=== PATIENT | male | born 1985 | race Caucasian/White ===

== ENCOUNTER 2025-01-26 12:56 | Emergency (ER) | payer MEDICARE, SELFPAY ==
[2025-01-26] VITALS (17 sets, daily range): BP systolic 107–123; BP diastolic 71–84; PULSE 59–67; RESP 10–17; TEMP 36.8; O2SAT 96–100
--- NOTE | ~2025-01-26 | XR_ITS ---
EXAMINATION: XR chest 2V DATE: 01/26/2025 13:33 INDICATION: Left-sided chest pain TECHNIQUE: PA and lateral views of the chest were obtained. COMPARISON: None FINDINGS: The lungs are clear with no focal airspace opacities, pulmonary edema, pleural effusion or pneumothor ax. The cardiomediastinal silhouette is normal. Mild thoracolumbar spondylosis. IMPRESSION: 1. No acute cardiopulmonary disease. Reviewed, dictated and finalized at location A.
--- NOTE | ~2025-01-26 | CT_ITS ---
CTA chest abdomen pelvis Ordering provider: Virginia Wade PA-C History: 39 years Male with . chest pain with left arm tingling . Comparison: None. Technique: CT chest with IV contrast. CT abdomen and pelvis CT abdomen and pelvis with IV and with or al contrast. Radiation reduction technique utilized.The dose-length product was 520.77 mGy-cm. 100 mL Omnipaque 350 was given IV. FINDINGS: CHEST: --VISUALIZED THORACIC INLET: Normal. --MEDIASTINUM: Aorta/coronary arteries: The thoracic aorta is normal. Heart/other: The heart is not enlarged. Lymph nodes: No mediastinal or hilar adenopathy. --LUNGS: No pulmonary nodules or masses. No infiltrates or effusions. No pneumothorax. --MUSCULOSKELETAL: Soft tissues: The superficial soft tissues are normal. Bones: Normal spine. ABDOMEN/PELVIS: --MUSCULOSKELETAL: Bones: Age appropriate degenerative changes of the spine. Superficial soft tissues: The superficial soft tissues are normal. --UPPER ABDOMINAL ORGANS: Liver: Normal. Gallbladder: Normal. Spleen: Normal. Stomach/duodenum: Normal. Pancreas: Normal. Adrenals: Normal. Kidneys: Right renal artery aneurysm is seen measuring 1.4 x 1.1 cm. --PELVIC ORGANS: The bladder shows slightly thickened wall. Evaluation for cystitis advised. No bladd er stones. --BOWEL AND MESENTERY: Colon: No evidence of diverticulitis.. Slightly thickened wall of the rectum. Clinical evaluation adv ised. Fecal material is loaded in the colon. Normal appendix. Small Bowel: Normal. No obstruction. Peritoneum/mesentery: No free air or free fluid. No mesenteric lymphadenopathy. Small mesenteric lymp h nodes are seen in the right lower quadrant. --RETROPERITONEUM: Normal aorta. No retroperitoneal lymphadenopathy. Small para-aortic lymph nodes are noted. IMPRESSION: CHEST: 1. No acute cardiopulmonary pathology. 2. No evidence of aortic dissection or pulmonary embolism. ABDOMEN/PELVIS: 1. No evidence of appendicitis, diverticulitis or intestinal obstruction. 2. 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 3. Constipation. 4. Thickened wall of the rectum which may indicate proctitis. Virginia Wade was notified with the result of the patient at 4:02 PM on January 26, 2025. Reviewed, dictated and finalized at location A.
--- NOTE | 2025-01-26 12:58 | ECG_ITS ---
Test Date: 2025-01-26 13:21:31 Measurements Intervals [place] Rate: 61 P: 51 SC: 163 QRS: 83 QRSD: 120 T: 59 QT: 377 QTc: 380 Interpretive Statements SINUS RHYTHM POSSIBLE LEFT ATRIAL ENLARGEMENT [-0.1mV P-WAVE IN V1/V2] POSSIBLE RIGHT VENTRICULAR CONDUCTION DELAY [RSR (QR) IN V1/V2] EARLY REPOLARIZATION [ST ELEVATION WITH NORMALLY INFLECTED T-WAVE] TYPE 3 BRUGADA PATTERN (NON-DIAGNOSTIC) [COVED/SADDLEBACK ST ELEVATION > 0.1mV IN 2 OF V1-3] No previous ECG available for comparison Electronically Signed On 01-26-2025 15:34:03 CDT by Monet Mcdowell M.D.
[2025-01-26] MEDS: ASPIRIN 81 MG CHEWABLE TABLET 324 MG PO (13:17)
[2025-01-26 13:21] LABS: Basophils Percent Auto 0.6 % (0.2-1.2); Eosinophils Absolute Auto 0.1 K/mm3 (0-0.3); Eosinophils Percent Auto 2.5 % (0-4.4); Hematocrit 44.4 % (42.0-52.0); Hemoglobin 15.9 g/dL (14.0-18.0); Immature Granulocyte Absolute 0.01 K/mm3 (0.00-0.031); Immature Granulocyte Percent A 0.2 % (0-0.5); Lymphocytes Absolute Auto 1.76 K/mm3 (0.9-3.2); Lymphocytes Percent Auto 36.7 % (18.3-44.2); Mean Corpuscular HGB Conc 35.8 g/dl (32-36); Mean Corpuscular Hemoglobin 31.7 pg (26-34); Mean Corpuscular Volume 88.6 fl (80-100); Mean Platelet Volume 9.2 fl (7.4-10.4); Monocytes Absolute Auto 0.6 K/mm3 (0.1-0.6); Monocytes Percent Auto 11.7 % (2.6-8.5); Neutrophils Absolute Auto 2.3 K/mm3 (1.3-6.7); Neutrophils Percent Auto 48.3 % (45.5-73.1); Platelet Count Result 158 k/mm3 (150-375); Red Blood Count 5.01 M/mm3 (4.6-6.20); Red Cell Distribution Width 12.2 % (11.5-14.5); White Blood Count 4.8 K/mm3 (4.5-10.0)
[2025-01-26 13:31] LABS: Alanine Aminotransferase 27 U/L (6-50); Albumin Level 4.6 g/dL (3.5-5.1); Alkaline Phosphatase 51 U/L (38-126); Anion Gap 8 mmol/L (4-12); Aspartate Amino Transferase 34 U/L (17-59); Bilirubin,Total 0.9 mg/dL (0.2-1.3); Blood Urea Nitrogen 11 mg/dL (9-20); Carbon Dioxide 27 mmol/L (22-30); Chloride 105 mmol/L (98-107); Estimated CRCL calculation 108 ml/min; Estimated Glomerular Filt Rate > 60; Glucose 92 mg/dL (65-110); Lipase 107 U/L (23-300); Potassium 4.1 mmol/L (3.4-5.0); Sodium 140 mmol/L (137-145)
[2025-01-26 13:33] LABS: INR 0.9
[2025-01-26 13:34] LABS: Partial Thromboplastin Time 28.5 Seconds (22.3-36.8)
[2025-01-26 13:42] LABS: Troponin I < 0.012 ng/mL (0.000-0.034)
--- OUTSIDE RECORDS SUMMARY | 2025-01-26 14:16 | XMS_ITS | Encounter Summary ---
Author Organization [facility] Address [address] [place] [address] Care Team Providers Care Domestic Violence Advocate Name Role Phone Cecily Licea Primary Care Provid er Encounter Details Date Type Department Care Team ([facility] st Contact Info) Description 09/15/2023 Billing Encounter LABORATORY [address] [place], [place] [id number] Cecily Licea PA [address], [address] [place] [address] Social History Tobacco Use Types Packs/Day Years Used Date Smoking Tobacco: Never Smokeless Tobacco: Never Alcohol Use Standard Drinks/Week Comments Not Currently 0 (1 standard drink = 0.6 oz pur e alcohol) Sex and Gender Information Value Date Recorded Sex Assigned at Male 09/14/2023 9:54 AM EST Legal Sex Male 9:53 AM EST Gender Identity Not on file Sexual Orientation Not on file documented as of this encounter Functional Status * Are you blind or do you have serious difficulty seeing, even when wearing glasses? Answer Date of Assessment Author Status No 09/15/2023 9:55 AM EST Daisha Cardona A ctive * Do you have serious difficulty walking or climbing stairs? (5 years or older) Answer Date of Assessment Author Status No 09/15/2023 9:55 AM EST Daisha Cardona A ctive * Are you deaf or do you have serious difficulty hearing? Answer Date of Assessment Author Status No 09/15/2023 9:55 AM EST Daisha Cardona A ctive * Is your DATABASE ARCHITECT blind or have serious difficulty seeing, even when wearing glasses? Answer Date of Assessment Author Status Yes 09/15/2023 9:55 AM Daisha Nieto A ctive * Are you deaf or do you have serious difficulty hearing? Answer Date of Assessment Author Status No 09/15/2023 9:55 AM Daisha Nieto A ctive * Are you blind or do you have serious difficulty seeing, even when wearing glasses? Answer Date of Assessment Author Status No 09/15/2023 9:55 AM Daisha Nieto A ctive * Do you have serious difficulty walking or climbing stairs? (5 years or older) Answer Date of Assessment Author Status No 09/15/2023 9:55 AM Daisha Nieto A ctive documented as of this encounter Plan of Treatment Not on file documented as of this encounter Visit Diagnoses Not on filedocumented in this encounter Care Teams Domestic Violence Advocate Relationship Specialty Start Date End Date Cecily Licea PA [address] [place] [address], [address] [place] [address] PCP - General Physician Tube Station Attendant 09/15/23 documented as of this encounter
--- OUTSIDE RECORDS SUMMARY | 2025-01-26 14:16 | XMS_ITS | Encounter Summary ---
Author Organization [facility] Address [address] [place] [address] Care Team Providers Care Battery Container Tester Aluminum Name Role Phone Cecily Licea Primary Care Provid er Encounter Details Date Type Department Care Team (Late st Contact Info) Description 09/15/2023 Procedure Pass [facility] [address], [address] [place] [address] Social History Tobacco Use Types [...] No 09/15/2023 9:55 AM EST Daisha Cardona N A ctive * Do you have serious difficulty walking or climbing stairs? (5 years or older) Answer Date of Assessment Author Status No 09/15/2023 9:55 AM EST Jaden Cardonae N A ctive * Are you deaf or do you have serious difficulty hearing? Answer Date of Assessment Author Status No 09/15/2023 9:55 AM EST Jaden Cardonae N A ctive * Is your CAMPGROUND CARETAKER blind or have serious difficulty seeing, even when wearing glasses? Answer Date of Assessment Author Status Yes 09/15/2023 9:55 AM EST Daisha Cardona N A ctive * Are you deaf or [...] Status No 09/15/2023 9:55 AM Daisha Nieto ctive documented as of this encounter Plan of Treatment Not on file documented as of this encounter Visit Diagnoses Not on filedocumented in this encounter Care Teams Battery Container Tester Aluminum Relationship Specialty Start Date End Date Cecily Licea PA [address] [place] [address], [place] [address] PCP - General Physician Nike Athlete 09/15/23 documented as of this encounter
--- OUTSIDE RECORDS SUMMARY | 2025-01-26 14:16 | XMS_ITS | Clinical Summary ---
Author Organization [facility] Address [address] [facility] [place] [address] Care Team Providers Care Automotive Technician Instructor Name Role Phone Pcp, No Primary Care Provider Unavailabl e Allergies No known active allergies Medications lithium carbonate (LITHOBID) 300 mg Oral Tablet Sustained Release 04/22/2021 Active mirtazapine (REMERON) 15 mg Oral Tablet Take 1 Tablet (15 mg total) by mouth Every night 10/21/2024 Active Active Problems No known active problems Encounters Date Type Department Care Team Description 12/05/2024 12:30 PM EDT Office Visit Urgent Care, [address] [place] [address] Bakari Nguyen PA-C Diarrhea, unspecified type (Primary Dx) 12/05/2024 Travel from Last 3 Months Immunizations Immunization Administration Dates Next Due Covid-19 Vaccine,Pfizer-BioNTech,Purple Top,12yr s+ 01/19/2021 Social History Tobacco Use Types Packs/Day Years Used Date Smoking Tobacco: Former Smokeless Tobacco: Never Tobacco Cessation:Counseling Given: Not Answered Alcohol Use Standard Drinks/Week Comments Not Currently 0 (1 standard drink = 0.6 oz pur e alcohol) Sex and Gender Information Value Date Recorded Sex Assigned at Not on file Legal Sex Male 10:39 AM EDT Gender Identity Not on file Sexual Orientation Not on file Last Filed Vital Signs Vital Sign Reading Time Taken Comments Blood Pressure 120/76 12/05/2024 2:09 PM EDT Pulse 67 12/05/2024 2:09 PM EDT Temperature 36.7 C (98 F) 12/05/2024 2:09 PM EDT Respiratory Rate 17 06/02/2021 3:57 PM EDT Oxygen Saturation 99% 12/05/2024 2:09 PM EDT Inhaled Oxygen Concentration - - Weight 71.5 kg (157 lb 9.6 oz) 12/05/2024 2:09 P M EDT Height 180.3 cm (5' 11 ) 06/02/2021 3:57 PM EDT Body Mass Index 21.98 06/02/2021 3:57 PM EDT Plan of Treatment Health Maintenance Due Date Last Done Comments Hepatitis C screening 1983 HIV Screening 12/03/1998 Adult Tdap-Td (1 - Tdap) 12/03/2002 Hepatitis B Vaccine (1 of 3 - 19+ 3-dose series) 12/03 Depression Screening 06/02/2022 06/02/2021 Covid-19 Vaccine ( season) 05/20/202411/2020 Medicare Annual Wellness Vis it - Calendar Year Insurers 09/19/2024 [facility] [employer] SYSTEM[employer] ENGINEER Capture Hidden 04/19/2025 Influenza Vaccine (Season Ended) 2025 Insurance [facility] MEDICARE Care Teams Automotive Technician Instructor Relationship Specialty Start Date End Date Pcp, No PCP - General 12/05/24
--- OUTSIDE RECORDS SUMMARY | 2025-01-26 14:16 | XMS_ITS | Clinical Summary ---
Author Organization [facility] Address [address] [place] [id number] Care Team Providers Care Toll Booth Operator Name Role Phone Cecily Licea Primary Care Provid er Allergies No known active allergies Medications lithium (LITHOBID) 300 MG CR tablet Take 2 tablets (600 mg) by mouth nightly 08/25/2023 Active QUEtiapine (SEROquel) 25 MG tablet Take 1 tablet (25 mg) by mouth nightly Active Active Problems Problem Noted Date Diagnosed Date Testicular pain, left 09/15/2023 Testicular mass 09/15/2023 Social History Tobacco Use Types Packs/Day Years [...] Sign Reading Time Taken Comments Blood Pressure 121/69 09/15/2023 9:57 AM EST Pulse 70 09/15/2023 9:57 AM EST Temperature 35.9 C (96.7 F) 09/15/2023 9:57 AM EST Respiratory Rate 16 09/15/2023 9:57 AM EST Oxygen Saturation 99% 09/15/2023 9:57 AM EST Inhaled Oxygen Concentration - - Weight 66.5 kg (146 lb 9.6 oz) 09/15/2023 9:57 A M EST Height 180.3 cm (5' 11 ) 09/15/2023 9:57 AM EST Body Mass Index 20.45 09/15/2023 9:57 AM EST Plan of Treatment Health Maintenance Due Date Last Done Comments Medicare Annual Wellness Visit 1985 Tetanus Ten-Year 1983 HEPATITIS C SCREENING 12/03/2001 COVID-19 Vaccine ( season) 05/20/202411/2020 Annual Exam 09/15/2024 09/15/2023 Depression Screening 09/19/2024 INFLUENZA VACCINE 04/19/2025 Insurance [facility] MED ADV DSNP [id number] [facility] MED [facility]V DSNP [id number] [facility] ADV DSNP [id number] [facility] MED ADV DSNP [id number] [facility] MED ADV DSNP [id number] [facility] MED ADV DSNP [id number] [facility] MED ADV DSNP [id number] [facility] MED ADV DSNP [id number] Care Teams Toll Booth Operator Relationship Specialty Start Date End Date Clingerman, Cecily Kerri, PA [address], [address] [place] [address] PCP - General Physician Medical Technologist Chief 09/15/23
--- NOTE | 2025-01-26 15:14 | ED.CHESTPAIN ---
HPI - Chest Pain General Chief Complaint: Chest Pain Stated Complaint: Chest pain/left arm numbness, shortness of breath Time Seen by Provider: 01/26/25 14:00 History of Present Illness HPI narrative: 39-year-old male with no past medical history presents emergency department for acute onset chest pain that started at 1200 today while sitting on the couch. Patient states he was drinking his coffee when he had sudden onset left-sided chest pain that radiated to his back lasted for approximately 15 minutes. Patient states he constantly for a stretch which did help somewhat, however he stood up again the pain returned. He reports associated shortness of breath, lightheadedness and left arm tingling. States the arm tingling resolved on the patient came to the ED. He states the intensity of the pain improved after 15 minutes since the onset but has been a tight and achy pain to the left side of his chest since. He states the pain is now worse with deep inspiration and with movement, better at rest. He denies recent injury or trauma, cough, hemoptysis, fever, abdominal pain, lower extremity edema history of VTE. Patient was adopted in who is unfamiliar his family medical history but was mother of cancer. He has not smoked in 8 years. Related Data Allergies Allergy/AdvReac Type Severity Reaction Status Date / Time No Known Allergies Allergy Verified 01/26/25 12:57 Review of Systems Review of Systems: All systems reviewed & are unremarkable except as noted in HPI and below Exam Narrative: GENERAL: Well-appearing, well-nourished, and in no acute distress. HEAD: Normocephalic, atraumatic. EYES: PERRLA and EOMI. ENT: Nares clear, no rhinorrhea or epistaxis. Mucous membranes moist. NECK: Supple. CHEST: Clear to auscultation. No respiratory distress. Tenderness to the left costosternal border on palpation HEART: Regular rate and rhythm. No murmur heard. Normal peripheral pulses. ABDOMEN: Soft, nontender, nondistended, normal active bowel sounds. EXTREMITIES: Normal range of motion. No edema. SKIN: Warm, dry, no rash. NEURO: No focal deficits. Alert and oriented x4. BUE and BLE strength 5/5, sensation intact throughout Course Vital Signs Vital signs: Vital Signs Temperature 98.3 F 01/26/25 13:06 Pulse Rate 67 01/26/25 13:06 Respiratory Rate 12 05/10/25 13:06 Blood Pressure 123/82 01/26/25 13:06 Pulse Oximetry 100 01/26/25 13:06 Oxygen Delivery Room Air 01/26/25 13:06 Temperature 98.3 F 01/26/25 13:06 Pulse Rate 66 01/26/25 16:01 Respiratory Rate 14 01/26/25 16:01 Blood Pressure 114/77 01/26/25 16:01 Pulse Oximetry 100 01/26/25 16:01 Oxygen Delivery Room Air 01/26/25 13:16 MDM - Chest Pain MDM Narrative Medical decision making narrative: 39-year-old male presents emergency department for sudden-onset left-sided chest pain that started at 12:00 p.m. today while he was sitting on the couch drinking coffee. Patient reports associated left arm tingling, shortness of breath, lightheadedness. States pain improved after about 15 minutes but has had intermittent tightness in the left side of his chest that is worse with deep inspiration and with movement since. Upon arrival to the ED is vital signs are stable. He is afebrile and nontoxic appearing resting comfortably in exam bed. He is neurovascularly intact, no deficits. He does have tenderness to the left costosternal border on palpation. EKG shows normal sinus rhythm with a rate of 61 ppm, normal DC interval, normal QRS duration, normal QTC, early repolarization otherwise no acute ischemic changes. No prior EKGs for comparison. Troponin is undetectable x2. CBC shows no leukocytosis or anemia. Chemistries are unremarkable no electrolyte derangements. Lipase is within normal limits. Given reported tingling to the left arm associated chest pain, CTA chest abdomen pelvis obtained for evaluation of aortic dissection. There is no acute cardiopulmonary pathology, no evidence of aortic dissection or pulmonary embolism. 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 Patient updated on results. Patient received Toradol, on re-evaluation states he feels much better. Suspect a component of MSK etiology. Will provide ibuprofen and Flexeril for costochondritis. He was advised to follow-up closely with his PCP for further evaluation and referral to vascular surgery regarding the incidental finding of renal artery aneurysm. Will also provide information regarding follow-up with [facility] vascular surgery. Stool softeners and MiraLax provided for constipation and encouraged a high-fiber diet. He has no signs or symptoms of proctitis while this does not clinically correlate. Patient is ready to be discharged and requesting food. He was given strict ED return precautions and discharged in stable condition. Lab Data 01/26/25 13:13 01/26/25 13:13 Labs: Lab Results 01/26/25 01/26/25 Range/Units 13:13 15:53 WBC 4.8 (4.5-10.0) K/mm3 RBC 5.01 (4.6-6.20) M/mm3 Hgb 15.9 (14.0-18.0) g/dL Hct 44.4 (42.0-52.0) % MCV 88.6 (80-100) fl MCH 31.7 (26-34) pg MCHC 35.8 (32-36) g/dl RDW 12.2 (11.5-14.5) % Plt Count 158 (150-375) k/mm3 MPV 9.2 (7.4-10.4) fl Immature Gran % (Auto) 0.2 (0-0.5) % Neut % (Auto) 48.3 (45.5-73.1) % Lymph % (Auto) 36.7 (18.3-44.2) % Callahan % (Auto) 11.7 H (2.6-8.5) % Eos % (Auto) 2.5 (0-4.4) % Baso % (Auto) 0.6 (0.2-1.2) % Lymph # (Auto) 1.76 (0.9-3.2) K/mm3 Callahan # (Auto) 0.6 (0.1-0.6) K/mm3 Eos # (Auto) 0.1 (0-0.3) K/mm3 Baso # (Auto) 0.0 (0.0-0.1) K/mm3 Abs Immat Gran (auto) 0.01 (0.00-0.031) K/mm3 Absolute Neuts (auto) 2.3 (1.3-6.7) K/mm3 Absolute Nucleated RBC 0.000 (0.0-0.012) K/mm3 Nucleated RBC % 0.0 (0.0-0.2) % PT 13.0 (11.1-14.7) Seconds INR 0.9 APTT 28.5 (22.3-36.8) Seconds Sodium 140 (137-145) mmol/L Potassium 4.1 (3.4-5.0) mmol/L Chloride 105 (98-107) mmol/L Carbon Dioxide 27 (22-30) mmol/L Anion Gap 8 (4-12) mmol/L BUN 11 (9-20) mg/dL Creatinine 0.81 (0.7-1.3) mg/dL Estim Creat Clear Calc 108 ml/min Estimated GFR > 60 (59 - ) Glucose 92 (65-110) mg/dL Calcium 9.0 (8.4-10.2) mg/dL Total Bilirubin 0.9 (0.2-1.3) mg/dL AST 34 (17-59) U/L ALT 27 (6-50) U/L Alkaline Phosphatase 51 (38-126) U/L Troponin I < 0.012 < 0.012 (0.000-0.034) ng/mL NT-Pro-B Natriuret Pep 37 (19.9-100) pg/mL Total Protein 7.0 (6.3-8.2) g/dL Albumin 4.6 (3.5-5.1) g/dL Lipase 107 (23-300) U/L Discharge Plan Discharge Clinical Impression: Costochondritis, Atypical chest pain, Aneurysm of renal artery Constipation Qualifiers: Constipation type: unspecified constipation type Qualified Code(s): K59.00 - Constipation, unspecified Patient Disposition: Home Condition: Stable Instructions: Antibiotic Form, Chest Pain (ED), Constipation (DC), Costochondritis (ED) Additional Instructions: You were evaluated in the emergency department for chest pain. Your workup here shows no heart attack, no dissection or blood clot in her lungs, no pneumonia. 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 Please follow-up with your primary care provider she may need referral to a vascular surgeon. You could also follow up with [facility] vascular surgery at [phone]. Your also found to have findings concerning for constipation. Please drink plenty fluids and eat a high-fiber diet, take docusate and MiraLax as directed. I suspect your chest pain is due to a muscular origin. Please take the muscle relaxer and ibuprofen as needed. Follow-up closely with your PCP. Return to the emergency department if you develop any new or worsening symptoms. Patient Language: Estonian Prescriptions: New cyclobenzaprine 10 mg tablet 10 mg PO TID PRN (Reason: muscle spasm) Qty: 14 0RF ibuprofen 800 mg tablet 800 mg PO TID PRN (Reason: pain) Qty: 14 0RF docusate sodium 100 mg capsule 100 mg PO BID Qty: 20 0RF polyethylene glycol 3350 17 gram/dose powder 17 g PO DAILY Qty: 119 0RF Follow-up/Referrals: PHYSICIAN,LIFE INSURANCE AGENT [Primary Care Provider] - Quality HEART score for chest pain patients History: slightly suspicious ECG: normal Age: < or = to 45 years Risk factors: no risk factors known Troponin: < or = to 1x normal limit Heart score: 0
[2025-01-26 15:32] LABS: NT Pro B Type Natriuretic Pept 37 pg/mL (19.9-100)
--- NOTE | 2025-01-26 15:49 | ECG_ITS ---
Test Date: 2025-01-26 15:54:56 Measurements Intervals [place] Rate: 60 P: 40 DC: 160 QRS: 80 QRSD: 114 T: 49 QT: 378 QTc: 378 Interpretive Statements SINUS RHYTHM POSSIBLE LEFT ATRIAL ENLARGEMENT [-0.1mV P-WAVE IN V1/V2] POSSIBLE RIGHT VENTRICULAR CONDUCTION DELAY [RSR (QR) IN V1/V2] EARLY REPOLARIZATION [ST ELEVATION WITH NORMALLY INFLECTED T-WAVE] TYPE 3 BRUGADA PATTERN (NON-DIAGNOSTIC) [COVED/SADDLEBACK ST ELEVATION > 0.1mV IN 2 OF V1-3] Compared to ECG 01/26/2025 13:21:31 No significant changes Electronically Signed On 01-28-2025 15:12:59 CDT by Fish Phan M.D.
[2025-01-26 16:24] LABS: Troponin I < 0.012 ng/mL (0.000-0.034)
[2025-01-26] MEDS: KETOROLAC 15 MG/ML VIAL (*BKC) IV PUSH (16:56)
== END 2025-01-26 17:20 | disposition home or self-care (01) ==
PROVIDERS: Student in an Organized Health Care Education/Training Program; Emergency Provider Physician Assistant
DX: M94.0 Chondrocostal junction syndrome [Tietze] (principal); I72.2 Aneurysm of renal artery; K59.00 Constipation, unspecified; R06.02 Shortness of breath; Z87.891 Personal history of nicotine dependence
CPT/HCPCS: 36415; 71046; 71275; 74174; 80053; 83690; 83880; 84484; 85025; 85610; 85730; 93005; 96374; 99284; A9270; J1885; Q9967